=== PATIENT | male | born 1980 | race African-American/Black ===

== ENCOUNTER 2024-08-18 14:39 | Emergency (ER) | payer SELFPAY ==
[~2024-08-18] VITALS: Ht 182.9 cm; Wt 76.8 kg
[2024-08-18 14:57] VITALS: TEMP 98.3
[2024-08-18] MEDS ORDERED: Morphine 4 MG/ML VIAL IV ONE ×2 (17:15→22:00)
[2024-08-18 17:44] LABS: BASO # 0.1 K/mm3 (0.0-0.2); BASO % 0.7 % (0.0-2.0); EOS # 0.2 K/mm3 (0.0-0.7); EOS % 2.8 % (0.0-4.0); GRAN # 4.2 K/mm3 (1.4-6.5); GRAN % 55.6 % (42.2-75.2); HEMATOCRIT 38.3 % (42.0-52.0); HEMOGLOBIN 12.8 g/dl (13.5-18.0); LYMPH # 2.6 K/mm3 (1.2-3.4); LYMPH % 34.7 % (20.0-51.0); MEAN CELL VOLUME 92 fl (80.0-100.0); MEAN CORPUSCULAR HEMOGLOBIN 31 pg (27-31); MEAN CORPUSCULAR HGB CONC 33 g/dl (33.0-37.0); MEAN PLATELET VOLUME 9.9 fl (7.4-10.4); MONO # 0.4 K/mm3 (0.1-0.6); MONO % 5.9 % (1.7-9.3); PLATELET COUNT 248 K/mm3 (130-400); RED BLOOD COUNT 4.15 M/mm3 (4.20-5.60); REDCELL DISTRIBUTION WIDTH-CV 12.4 % (11.5-14.5)
[2024-08-18 17:52] LABS: INR 2.1 (0.8-3.0); PROTHROMBIN TIME 22.3 SECONDS (9.7-12.8)
[2024-08-18 17:54] LABS: PARTIAL THROMBOPLASTIN TIME 41.4 SECONDS (26.0-37.0)
[2024-08-18 18:09] LABS: ALBUMIN 3.9 g/dL (3.5-5.0); BILIRUBIN,TOTAL 0.5 mg/dL (0.2-1.2); CREATININE, serum 1.12 mg/dL (0.72-1.25); POTASSIUM 4.1 mEq/L (3.5-4.5); TOTAL PROTEIN 8.2 g/dl (6.2-8.1)
[2024-08-18] MEDS ORDERED: Heparin/D5W 250 ML IV SCH (21:30)
[2024-08-18] MEDS ORDERED: Heparin 5,000 UNITS/ML 1 ML VIAL IV ONE (21:30)
[2024-08-18] MEDS ORDERED: Heparin 5,000 UNITS/ML 1 ML VIAL IV PRN (21:30)
[2024-08-18 22:41] VITALS: BP 125/71; PULSE 67
== END 2024-08-18 22:41 | disposition short-term general hospital (02) ==
LOC: COL.ER 14:39
PROVIDERS: Emergency Medicine
DX: I82.409 Acute embolism and thrombosis of unspecified deep veins of unspecified lower extremity (principal)
CPT/HCPCS: J1644; J2270

== ENCOUNTER → 2024-08-18 | Outpatient (CLI) | payer SELFPAY ==
[~2024-08-18] MED LIST: CLEOCIN HCL300 MG PO; FLEXERIL 1010 MG/TAB PO; NAPROSYN500 MG PO; NORCO 325 MG-51 TAB PO; ZOHYDRO ER10 MG PO
== END ==
LOC: COL.RAD 08:04
DX: I82.411 Acute embolism and thrombosis of right femoral vein (principal); I82.492 Acute embolism and thrombosis of other specified deep vein of left lower extremity